=== PATIENT | female | born 2000 | race Caucasian/White ===

== ENCOUNTER 2024-09-10 20:06 | Emergency (ER) | payer SELFPAY ==
[~2024-09-10] VITALS: Ht 165.1 cm; Wt 82.5 kg
[2024-09-10 20:09] VITALS: BP 132/79; TEMP 98.4; O2SAT 100
== END 2024-09-10 20:50 | disposition left against medical advice (07) ==
LOC: M ED 20:06
DX: Z53.21 Procedure and treatment not carried out due to patient leaving prior to being seen by health care provider (principal)